=== PATIENT | female | born 1945 | race Hispanic/Latino ===

== ENCOUNTER 2024-04-04 12:42 | Emergency (ER) | payer OTHER ==
[~2024-04-04] VITALS: Ht 154.9 cm; Wt 65.8 kg
--- NOTE | 2024-04-04 13:34 | HMCIMG ---
CT HEAD/BRAIN W/O CONTRAST HISTORY: Headaches COMPARISON: None TECHNIQUE: Multiple sequential axial images of the head were obtained from the base of the skull through vertex. Patient was not given contrast through intravenous route. FINDINGS: The ventricles and extraventricular CSF spaces are dilated consistent with cerebral atrophy. Nonspecific white matter changes seen. There is no midline shift, mass effect or herniation. No acute intracranial bleed is seen. Visualized portion of the paranasal sinuses are grossly within normal limits. IMPRESSION: 1. No acute intracranial bleed is seen. 2. Atrophy with white matter changes. CT was performed with one or more following dose reduction techniques: automated exposure control, adjustment of the mA and kv according to patient's size, or use of a iterative reconstruction technique.
--- NOTE | 2024-04-04 14:22 | HMCIMG ---
CHEST 1VW HISTORY: Nausea and vomiting COMPARISON: None FINDINGS: A frontal projection of the chest was obtained. No acute pulmonary infiltrates is seen. The heart is normal in size. Prominent interstitial markings are seen. Degenerative changes are seen. No evidence of aortic calcification is seen. IMPRESSION: 1. No acute pulmonary infiltrate is seen.
--- NOTE | 2024-04-04 14:26 | EKG ---
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
[2024-04-04 14:43] LABS: BASOPHILS # (AUTO) 0.08 K/uL (0.00-0.20); BASOPHILS % (AUTO) 0.7 % (0.0-5.0); EOSINOPHILS # (AUTO) 0.14 K/uL (0.00-0.70); EOSINOPHILS % (AUTO) 1.2 % (0.0-8.0); IMMATURE GRANULOCYTE ABSOLUTE 0.05 K/uL (0-1); LYMPHOCYTES # (AUTO) 2.9 K/uL (1.0-4.8); LYMPHOCYTES % (AUTO) 24.5 % (21.0-51.0); MEAN CORPUSCULAR HEMOGLOBIN 30.8 pg (27.0-33.0); MEAN CORPUSCULAR HGB CONC 33.1 g/dL (32.0-36.0); MEAN CORPUSCULAR VOLUME 92.9 fL (79-99); MONOCYTES # (AUTO) 1.1 K/uL (0.1-1.0); MONOCYTES % (AUTO) 9.2 % (3.0-13.0); NEUTROPHILS # (AUTO) 7.4 K/uL (1.8-7.7); PLATELET COUNT (AUTO) 223 K/uL (130-400); RED BLOOD CELL COUNT(AUTO) 4.52 MIL/uL (4.00-5.50); RED CELL DISTRIBUTION WIDTH 12.1 % (11.0-15.5); WHITE BLOOD COUNT (AUTO) 11.6 K/uL (4.8-10.8)
[2024-04-04 14:50] LABS: POTASSIUM 4.6 mmol/L (3.5-5.1)
[2024-04-04 14:54] LABS: ALBUMIN 3.8 g/dL (3.5-5.0); BILIRUBIN,TOTAL 0.3 mg/dL (0.2-1.0); TOTAL PROTEIN, SERUM 8.1 g/dL (6.0-8.3)
[2024-04-04] MEDS: acetaMINOPHEN 325 MG TAB PO ONE (15:30)
--- NOTE | 2024-04-04 15:54 | ERN ---
ED Note History of Present Illness Stated Complaint: WEAKNESS Chief Complaint: Weakness Time Seen by MD: 12:49 Dictation: This 78-year-old female was brought to the emergency department after experiencing a transient severe pain in the occiput and back of the neck bilaterally with one episode of vomiting and a sensation of both arms being weak. The symptoms began at 10:50 a.m. while she was making tamales and have abated by the time she got here. She reported that she felt pain in the back of the neck that radiated into the arms and that her arms felt weak. The weakness she describes is a recurrent problem which is stuttering in nature in that on occasion when she attempts to flex at the elbow she feels that the arm will not come up the way she wants it to and that it stutters up. Other times it is perfectly normal and she can do all of her activities of daily living without difficulty. There was no associated difficulty with the vision, speech or swallowing, gait, no chest pain or shortness of breath and no abdominal pain. The patient is still reports a little discomfort when she moves her neck around right greater than left although the symptoms when they started for left greater than right The patient has a underlying history of hypertension hyperlipidemia and gets frequent muscle cramps. In addition she has a facial twitch was has been treated previously with Botox about six months ago. She did see a neurologist in the remote past regarding the twitching of the muscles but does not recall who she saw. She has discussed her arm symptoms with her PCP on a couple of occasions but no additional studies have been done Patient lives at home with family. Her son accompanied her to the emergency department. She does not smoke drink use recreational drugs. She has hypertension and hyperlipidemia Allergies: Coded Allergies: No Known Drug Allergies (Unverified Allergy, Unknown, 04/04/24) Past Medical History Past Medical History: High Cholesterol, Hypertension Surgical History: None RN Note Reviewed/Agreed w/PFSH: Yes Review of System Dictation All pertinent systems reviewed, negative except as documented in the HPI The ROS is obtained from patient, assisted by her son GENERAL/CONSTITUTIONAL: Negative except as documented in HPI. ENT: Negative except as documented in HPI. CARDIOVASCULAR: Negative except as documented in HPI. RESPIRATORY: Negative except as documented in HPI. GASTROINTESTINAL: Negative except as documented in HPI. GENITOURINARY: Negative except as documented in HPI. MUSCULOSKELETAL: Negative except as documented in HPI. SKIN: Negative except as documented in HPI. NEUROLOGIC: Negative except as documented in HPI. Initial Vital Sign VS Vital Signs Date Time Temp Pulse Resp B/P (MAP) Pulse Ox O2 Delivery O2 Flow Rate FiO2 04/04/24 12:48 98.2 77 18 172/79 98 04/04/24 13:58 Room Air* 0 21 Physical Exam Dictation VITAL SIGNS: note is made of triage vital signs CONSTITUTIONAL: This is a comfortable patient who is awake, alert, and appropriately interactive. She is smiling and moving about freely on the gurney. There was an obvious right facial twitch in the patient has some tremor in both the left and right hand. HEAD: Normocephalic, Atraumatic. EYES: Periorbital areas with no swelling, redness, or edema. Lids and lashes are normal. Conjunctival injection is absent. Sclera anicteric. Pupils equal, round, reactive to light. There was no visual field cut and extraocular movements are intact. There was frequent spasm of the right-sided lids ENT: No nasal discharge noted. Posterior pharynx is without exudate, redness, swelling, masses, or evidence of obstruction. Uvula midline. Mucous membranes moist. NECK: Trachea midline, no masses palpated, and no cervical lymphadenopathy. No swelling. Supple, full range of motion without nuchal rigidity. ' No vertebral point tenderness but the patient has some palpable musculoskeletal discomfort in the paraspinous muscles worse on the right than the left No meningismus. CHEST/AXILLA: Normal chest wall appearance and motion. No tenderness. No crepitus. CV: Normal rate, regular rhythm. No murmur. No edema. RESPIRATORY:Respiratory rate is normal. Bilateral equal breath sounds with good airflow. Normal breath sounds are noted. No rales, rhonchi or wheezes noted. No increased work of breathing, no retractions. ABDOMEN: Inspection normal. No distention is appreciated. Bowel sounds are normal. No mass or organomegaly is appreciated. There is no tenderness. No rebound. No rigidity. No voluntary or involuntary guarding. BACK: Inspection is normal. No midline tenderness is appreciated. The patient appears comfortable when moving. : No CVA tenderness or bladder tenderness. SKIN: Warm, dry, with normal turgor. Capillary refill less than 3 seconds. Normal color.No rash. No cellulitis or abscess. No evidence of acute injury. MS/Extremity: There is no calf tenderness. Baseline range of motion is noted in all 4 extremities. There are no deformities. She does show me her muscle weakness and some of the time when she attempts to flex her left arm it seems to flex in a stuttering fashion and when I feel it I can feel a clicking or sticking in the movement. At other times there is full range of motion without this feature. NEURO: Awake and alert, lucid. There is a prominent right facial twitch involving primarily the sarah orbital areas cheeks and right lateral mouth which impacts the patient's speech and symmetry. Motor strength 5/5 in all extremities. Sensory grossly intact. Pronator drift is negative and [id number] is normal. PSYCH: Patient is appropriately attentive and cooperative without evidence of hallucination. Results (Laboratory/Radiology) Laboratory/Radiology Laboratory Tests Test 04/04/24 14:09 White Blood Count 11.6 K/uL (4.8-10.8) H Red Blood Count 4.52 MIL/uL (4.00-5.50) Hemoglobin 13.9 g/dL (12.0-16.0) Hematocrit 42.0 % (36-48) Mean Corpuscular Volume 92.9 fL (79-99) Mean Corpuscular Hemoglobin 30.8 pg (27.0-33.0) Mean Corpuscular Hemoglobin Concent 33.1 g/dL (32.0-36.0) Red Cell Distribution Width 12.1 % (11.0-15.5) Platelet Count 223 K/uL (130-400) Mean Platelet Volume 11.3 fL (7.5-10.5) H Immature Granulocyte % (Auto) 0.4 % (0-1) Neutrophils (%) (Auto) 64.0 % (40.0-77.0) Lymphocytes (%) (Auto) 24.5 % (21.0-51.0) Monocytes (%) (Auto) 9.2 % (3.0-13.0) Eosinophils (%) (Auto) 1.2 % (0.0-8.0) Basophils (%) (Auto) 0.7 % (0.0-5.0) Neutrophils # (Auto) 7.4 K/uL (1.8-7.7) Lymphocytes # (Auto) 2.9 K/uL (1.0-4.8) Monocytes # (Auto) 1.1 K/uL (0.1-1.0) H Eosinophils # (Auto) 0.14 K/uL (0.00-0.70) Basophils # (Auto) 0.08 K/uL (0.00-0.20) Absolute Immature Granulocyte (auto 0.05 K/uL (0-1) Nucleated Red Blood Cells 0.0 % (0.0-0.19) Sodium Level 141 mmol/L (136-145) Potassium Level 4.6 mmol/L (3.5-5.1) Chloride Level 103 mmol/L (101-111) Carbon Dioxide Level 32 mmol/L (21-32) Blood Urea Nitrogen 26 mg/dL (7-18) H Creatinine 1.0 mg/dL (0.5-1.0) Glomerular Filtration Rate Calc 58 mL/min (>90) Random Glucose 87 mg/dL (70-105) Total Calcium 9.7 mg/dL (8.5-10.1) Total Bilirubin 0.3 mg/dL (0.2-1.0) Aspartate Amino Transf (AST/SGOT) 12 U/L (10-37) Alanine Aminotransferase (ALT/SGPT) 26 U/L (12-78) Alkaline Phosphatase 70 U/L (50-136) Total Creatine Kinase 86 U/L (21-232) Troponin I High Sensitivity 5 ng/L (4-50) Total Protein 8.1 g/dL (6.0-8.3) Albumin 3.8 g/dL (3.5-5.0) Lipase 45 U/L (16-77) Labs Reviewed?: Yes EKG Comment: Time reviewed: 142 EKG number; 1 Rate and rhythm: Normal sinus rhythm at 69 beats per minute [place]:normal Morphology: Low voltage in the precordial leads MA interval: normal QT interval: normal ST/[place]: normal Impression: normal sinus rhythm without STEMI or ectopy Comparison EKG: none EKG INTERPRETATION by Dr. Luis Perez ED Course ED Course Orders Procedure Category Date Status Time Ct Head/Brain W/O CT 04/04/24 Resulted Contrast 13:07 Chest 1vw RAD 04/04/24 Resulted 13:07 12 Lead Ekg Tracing- EKG 04/04/24 Complete Technical 13:07 Cbc With Differential LAB 04/04/24 Complete 13:07 Comprehensive LAB 04/04/24 Complete Metabolic Panel 13:07 Troponin I High LAB 04/04/24 Complete Sensitivity 13:07 Creatine Kinase, Total LAB 04/04/24 Complete 13:07 Lipase LAB 04/04/24 Complete 13:07 Acetaminophen 325 Tab PHA 04/04/24 Complete (Tylenol 325mg Tab 14:30 Current Medications Medications (Trade) Dose Ordered Sig/Norman Route PRN Reason Start Time Stop Time Status Last Admin Dose Admin Acetaminophen (TYLenol 325MG TAB) 650 mg ONCE ONCE PO 04/04/24 14:30 04/04/24 14:31 DC 04/04/24 15:30 Vital Signs Date Time Temp Pulse Resp B/P (MAP) Pulse Ox O2 Delivery O2 Flow Rate FiO2 04/04/24 16:04 98.2 63 18 130/60 97 Room Air* 0 04/04/24 15:30 98.2 04/04/24 13:58 98.2 72 18 142/58 98 Room Air* 0 04/04/24 12:48 98.2 77 18 172/79 98 Medical Decision Making MDM INITIAL IMPRESSION Initial history and physical concerning for muscle spasm, stroke today very unlikely but because of the arm symptoms for one month we will do CT of the head. Contributing medical problems: Hypertension hyperlipidemia I have reviewed the triage nursing notes and vital signs. The patient is afebrile with acceptable oxygen saturation, heart rate and blood pressure. Initial plan: Tylenol for symptoms, CT head laboratory screening consider neurology consult DATA REVIEW I have reviewed additional NN, repeat VS, and monitoring where indicated. Heart rate, blood pressure, and O2 saturation are acceptable. [place] diagnostic results: Lab work includes a BUN of 26 and creatinine 1.0 and white count of 11.6. Otherwise blood work is unremarkable. CT head was read as small vessel disease. Chest x-ray unremarkable Other independent historian: Son provides some additional history Review of external data: None. ED COURSE Interventions: Tylenol gave the patient some relief of her neck discomfort Reassessment: The patient is very comfortable. Her neurologic exam has rem ained normal with the exception of the staccato movement of the left arm and intermittent right facial twitching. Her pain has resolved DISPOSITION Final diagnostic impression: Neck spasm, resolved Chronic movement disorder I discussed my findings, clinical impression and treatment recommendations with the patient. I have reviewed the social factors contributing to the patient's presentation and disposition planning. My final plan for disposition was made based upon clinical findings, response to treatment and discussion with the patient regarding management options. I did review the patient's motor findings with , the neurologist on-call for tele neurology. She recommended outpatient neurologic follow-up Hospitalization is not indicated due to low risk of short term progression, complication, morbidity or mortality related to the current diagnosis At the time of discharge, the vital signs are within acceptable limits. Repeat examination: No significant new changes. Patient has been able to take oral liquids. The discharge treatment plan includes general recommendations and symptomatic care. She should continue her home medications. Incidental findings discussed: none Questions were invited and answered in layman's terms. I have emphasized my follow-up recommendations and reviewed ED return precautions. I have answered any questions in layman's terms. The patient and her son understand that they will have to arrange for out- patient follow-up for recheck of today's condition. The patient is stable and appropriate for discharge from the ED. This dictation was prepared using [employer] voice recognition software. Occasional voice recognition errors may occur. When identified, these errors have been corrected. While every attempt is made to correct errors during dictation, errors may still exist. DX & DISP Disposition: Discharge Decision to Admit Date: Apr 04, 2024 Decision to Admit Time: 17:21 Departure Impression: Primary Impression: Acute neck spasm Additional Impression: Movement disorder of the left arm Condition: Stable Additional Instructions: I spoke to a neurologist in the emergency department who recommended that you be seen by a local neurologist who can perform a detailed physical examination and evaluate the movement problems you are having in your left arm. In the meantime continue usual medications and use Tylenol for mild pain. For severe persistent pain or any change in neurologic status return to the emergency department. Follow up with your family physician with these instructions next week Referrals: ANILA READ MD (PCP) Time of Disposition: 17:23 LUIS PEREZ MD Apr 04, 2024 15:54
[2024-04-04 17:02] VITALS: TEMP 98.2
[2024-04-04 17:39] VITALS: BP 131/61; PULSE 68; RESP 18; TEMP 98.2; O2SAT 99
== END 2024-04-04 17:40 | disposition home or self-care (01) ==
LOC: EDH 12:42
DX: M62.838 Other muscle spasm (principal); G25.9 Extrapyramidal and movement disorder, unspecified; E78.00 Pure hypercholesterolemia, unspecified; I10 Essential (primary) hypertension
CPT/HCPCS: 36415; 70450; 71045; 80053; 82550; 83690; 84484; 85025; 93005; 99285